=== PATIENT | male | born 1985 | race Caucasian/White ===

== ENCOUNTER 2020-08-10 08:36 | Inpatient (IN) | payer OTHER ==
[~2020-08-10] VITALS: Ht 172.7 cm; Wt 81.5 kg
[2020-08-10] MEDS ORDERED: OMEP20 PO (08:46)
[2020-08-10] MEDS ORDERED: METH-386 PO (08:46)
[2020-08-10] MEDS ORDERED: CICL6.1H2 IH (08:46)
[2020-08-10] MEDS ORDERED: METH-661 PO (08:46)
[2020-08-10] MEDS ORDERED: ALBU8HFA IH (08:46)
[2020-08-10] MEDS ORDERED: HALOPERIDOL 5 MG TABLET PO ONE (09:00)
[2020-08-10] MEDS ORDERED: LORazepam 2 MG TABLET PO ONE (09:00)
[2020-08-10 09:19] LABS: BASOPHILS % (AUTO) 0.7 % (0.0-2.0); EOSINOPHILS % (AUTO) 0.9 % (1.0-6.0); HEMATOCRIT 42.5 % (41-53); HEMOGLOBIN 14.1 g/dL (13.5-17.5); LYMPHOCYTES # (AUTO) 2.1 K/uL (1.0-4.8); LYMPHOCYTES % (AUTO) 18.1 % (22.0-44.0); MEAN CORPUSCULAR HEMOGLOBIN 31.1 pg (26.0-34.0); MEAN CORPUSCULAR HGB CONC 33.2 G/dL (31.0-37.0); MEAN CORPUSCULAR VOLUME 94 fL (80-100); MONOCYTES % (AUTO) 8.5 % (2.0-9.0); NEUTROPHILS # (AUTO) 8.2 K/uL (1.8-7.7); NEUTROPHILS % (AUTO) 71.8 % (40.0-70.0); PLATELET COUNT (AUTO) 250 K/uL (150-450); RED BLOOD CELL COUNT(AUTO) 4.54 MIL/uL (4.50-5.90); RED CELL DISTRIBUTION WIDTH 12.9 % (11.5-14.5)
[2020-08-10 09:28] LABS: CHLORIDE 104 mmol/L (98-107); POTASSIUM 4.6 mmol/L (3.5-5.1); SODIUM SERUM 141 mmol/L (136-145)
[2020-08-10 09:39] LABS: ALANINE AMINOTRANSFERASE 24 U/L (12-78); ALBUMIN 4.3 g/dL (3.4-5.0); ALKALINE PHOSPHATASE 130 U/L (46-116); ANION GAP 9 mmol/L (8-16); ASPARTATE AMINOTRANSFERASE 27 U/L (15-37); BILIRUBIN,TOTAL 0.9 mg/dL (0.1-1.0); CALCIUM, TOTAL 9.2 mg/dL (8.8-10.5); CARBON DIOXIDE 28 mmol/L (22-29); CREATININE 1.09 mg/dL (0.60-1.30); GLOMERULAR FILTR. RATE CALC > 60 mL/min (>60); GLUCOSE,RANDOM 102 mg/dL (70-110); TOTAL PROTEIN, SERUM 7.8 g/dL (6.4-8.2); UREA NITROGEN, BLOOD 23 mg/dL (7-18)
[2020-08-10] MEDS ORDERED: LORazepam 2 MG/ML VIAL IM ONE (10:45)
[2020-08-10] MEDS ORDERED: DiphenhydrAMINE HCL 50 MG/ML VIAL IM ONE (10:45)
[2020-08-10] MEDS ORDERED: HALOPERIDOL LACTATE 5 MG/ML VIAL IM ONE (10:45)
[2020-08-10 10:57] LABS: COVID AG,FIA SOURCE NASOPHARYNGEAL
[2020-08-10] MEDS ORDERED: ACETAMINOPHEN 325 MG TABLET PO PRN ×2 (11:00→11:15)
[2020-08-10] MEDS ORDERED: ONDANSETRON HCL 4 MG/2 ML VIAL IVP PRN (11:00)
[2020-08-10] MEDS ORDERED: MAGNESIUM HYDROXIDE SUSPENSION 30 ML UDCUP PO PRN (11:15)
[2020-08-10] MEDS ORDERED: SODIUM CHLORIDE 0.9% 1,000 ML IV ONE (11:15)
[2020-08-10] MEDS ORDERED: BECL10.62 IH (12:56)
[2020-08-10 19:43] VITALS: BP 123/76
[2020-08-10] MEDS: OLANZapine 5 MG TABLET PO SCH (19:47)
[2020-08-11 04:39] VITALS: BP 101/73
[2020-08-11 05:34] LABS: AMPHET/METH SCREEN,URINE POSITIVE (NEGATIVE); BARBITURATE SCREEN, URINE NEGATIVE (NEGATIVE); BENZODIAZEPINES SCREEN,URINE NEGATIVE (NEGATIVE); CANNABINOID SCREEN,URINE NEGATIVE (NEGATIVE); COCAINE SCREEN,URINE NEGATIVE (NEGATIVE); METHADONE SCREEN, URINE NEGATIVE (NEGATIVE); OPIATE SCREEN,URINE NEGATIVE (NEGATIVE); PHENCYCLIDINE SCREEN,URINE NEGATIVE (NEGATIVE)
[2020-08-11 08:12] VITALS: BP 114/67
[2020-08-11] MEDS: FAMOTIDINE 20 MG TABLET PO SCH (08:15)
[2020-08-11] MEDS: OLANZapine 5 MG TABLET PO SCH ×2 (08:15→21:05)
[2020-08-11 12:10] VITALS: BP 106/67
[2020-08-11 16:11] VITALS: BP 108/68
[2020-08-11 19:28] VITALS: BP 103/60
[2020-08-11 23:02] VITALS: BP 103/57
[2020-08-12 05:03] VITALS: BP 97/56
[2020-08-12 07:52] VITALS: BP 102/67
[2020-08-12] MEDS: FAMOTIDINE 20 MG TABLET PO SCH (07:58)
[2020-08-12] MEDS: OLANZapine 5 MG TABLET PO SCH ×2 (07:58→20:56)
[2020-08-12] MEDS ORDERED: BISMUTH SUBSALICYLATE 524 MG/30 ML SUSPENSION UDCUP PO PRN (09:45)
[2020-08-12 20:46] VITALS: BP 100/59
[2020-08-13 06:06] VITALS: BP 112/58
[2020-08-13 08:01] VITALS: BP 116/75
[2020-08-13] MEDS: OLANZapine 5 MG TABLET PO SCH (09:08)
[2020-08-13] MEDS: FAMOTIDINE 20 MG TABLET PO SCH (09:08)
[2020-08-13] MEDS ORDERED: FAMO20 PO (11:22)
[2020-08-13] MEDS ORDERED: OLAN5TAB52 PO (11:22)
[2020-08-13] MEDS ORDERED: ACET-2247 PO (11:24)
[2020-08-13] MEDS ORDERED: MOM30 PO (11:25)
== END 2020-08-13 15:28 | disposition home or self-care (01) | DRG 885 ==
LOC: EMS 08:43 → 6S 11:15
PROVIDERS: ADMIT Internal Medicine; ATTEND Internal Medicine
DX: F23 Brief psychotic disorder (principal); G92 Toxic encephalopathy; R65.10 Systemic inflammatory response syndrome (SIRS) of non-infectious origin without acute organ dysfunction; J45.909 Unspecified asthma, uncomplicated; F41.9 Anxiety disorder, unspecified; Z85.841 Personal history of malignant neoplasm of brain; M79.7 Fibromyalgia; F15.10 Other stimulant abuse, uncomplicated; Z20.822 Contact with and (suspected) exposure to COVID-19
CPT/HCPCS: 70450; 80053; 80307; 85025; 99285; G0480; J1200; J1630; J2060